=== PATIENT | female | born 2000 | race Caucasian/White ===

== ENCOUNTER 2025-01-10 23:17 | Emergency (ER) | payer OTHER, SELFPAY ==
[2025-01-10 23:21] VITALS: BP 150/104
[2025-01-11 00:25] LABS: HCG, Serum Qualitative Screen Negative
[2025-01-11 00:37] LABS: Blood Urea Nitrogen 9 mg/dl (7-17); Calcium 8.8 mg/dl (8.4-10.2); Carbon Dioxide 22 mmol/L (22-30); Chloride 108 mmol/L (98-107); Glucose 142 mg/dl (70-99); Sodium 137 mmol/L (135-145); eGFR > 60.00
[2025-01-11 02:57] VITALS: BMI 22.0
--- NOTE | 2025-01-11 04:44 | ED.GENMED ---
History of Present Illness
General
Chief Complaint: Generalized Pain
Source: patient
Exam Limitations: none
Time Seen by Provider: 01/11/25 04:26
Nursing documentation reviewed up to this point in time: agreed with
History of Present Illness
History of Present Illness:
This is a 24-year-old female with history of anxiety, ADHD, insomnia. Maintained on Zoloft, Vyvanse and as needed trazodone.
She complains of several day history of generalized aches, cough. Cough is occasionally productive of yellowish phlegm. Aches and fatigue have worsened over the past 2 days and she was noted to have low-grade fever tonight.
No close contacts with similar symptoms. No recent travel. She has not taken antipyretics today but generally takes Tylenol versus ibuprofen on a near daily basis for generalized aches.
She denies sore throat or sinus congestion, no earache, no headache, no neck or back pain. No rash. No nausea or vomiting, no diarrhea or constipation. She has a prior history of UTIs and had mild UTI symptoms perhaps 2 days ago but has since
resolved. No flank pain.
She denies risk of , last menstrual period normal and on time 1 week ago.
Past History
Past History
ED Past Medical History: Psychiatric
ED Past Surgical History: None
Social History
Tobacco: Former smoker (Quit smoking a few months ago, 2024.)
Drug: None
Personal: Single
Living: with family
Employment: Student
Family History
Family History: Other (Noncontributory)
Phy Exam
Physical Exam
Physical Exam:
GENERAL: 24-year-old female appears her stated age, bright and alert, pleasant, appears in no acute distress. Borderline low-grade fever noted initially, has since normalized.
EYE: pupils equal and reactive. anicteric
NECK: Supple, nontender, no meningismus, no significant adenopathy.
ENT: posterior pharynx is clear, oral mucosa is moist. TM clear b/l, nares patent.
CARDIAC: Regular rate and rhythm. no murmur.
LUNGS: Clear breath sounds bilaterally, no acute respiratory distress, no wheezes/rales/rhonchi. No cough appreciated during exam.
ABDOMEN: Soft, nondistended, without focal tenderness, no r/g, no cvat. normoactive BS.
NEUROLOGICAL: Alert and oriented x3, no focal neuro deficits. Gait is keita and steady.
SKIN: Warm and dry, normal color, skin intact. No rash.
MUSCULOSKELETAL: No C/C/E. peripheral pulses are full and equal b/l. No palpable tenderness.
PSYCH: Normal and appropriate interaction.
Course
Orders/Labs/Results
Orders:
Orders
01/10/25 23:24
Complete Blood Count/No Diff Urgent
Test Result ONCE
01/10/25 23:46
Basic Metabolic Panel Urgent
Comment: NO K
HCG, Serum Qualitative Screen Urgent
01/11/25 04:43
Ibuprofen [Motrin] 600 mg PO NOW STA
CR Chest - 2 Views Urgent
Comment:
Reason For Exam: cough, fever
01/11/25 04:44
Urinalysis Reflex To Culture Urgent
01/11/25 05:06
COVID-19 Antigen Urgent
Source: Nasal Swab
Influenza A+B Rapid Molecular Urgent
JENNI Source: Nasal Swab
Specimen Description:
Abnormal Lab Results
01/10/25
23:46
Chloride 108 H mmol/L
(98-107)
Glucose 142 H mg/dl
(70-99)
01/10/25 23:46
Vital Signs
Initial and Last Documented VS:
Initial Vital Signs
Temp Pulse Resp BP Pulse Ox
99.7 F 108 22 150/104 100
01/10/25 23:21 01/10/25 23:21 01/10/25 23:21 01/10/25 23:21 01/10/25 23:21
Last Documented Vital Signs
Temp Pulse Resp BP Pulse Ox
98.8 F 108 22 150/104 100
01/11/25 03:07 01/10/25 23:21 01/10/25 23:21 01/10/25 23:21 01/11/25 04:51
MDM/Problems Addressed
Differential Diagnosis Includes:
Concern for viral syndrome, viral URI, pneumonia, UTI.
Overall well in appearance, nontoxic in appearance.
Will check chest x-ray, rapid COVID, rapid influenza, urinalysis.
Will give ibuprofen for generalized aches.
BMP hemolyzed with normal sodium, normal BUN and creatinine, hCG is negative. Patient refused repeat venipuncture for CBC and at this point, overall well in appearance, no significant past medical history thus, no indication for laboratory studies.
*Radiology
Radiology exam reviewed: preliminary read by ED provider (Chest x-ray is unremarkable. Clear lung jamison.)
*Pulse Oximetry
SaO2: 100
Oxygen Mode of Delivery: Room air
Patient hypoxic: no
*Critical Care Note
Total Time (30-74mins, 75-104mins- exclusive of procedures): Not Applicable
Update Note
Update Note:
06:15
Patient feeling improved after ibuprofen.
COVID and influenza testing are negative.
Chest x-ray is unremarkable. No evidence of infiltrate.
She was unable to provide a urine specimen, dropped it in the toilet. Currently denies UTI symptoms over the past 2 to 3 days.
She does present with mild URI symptoms, mild nasal congestion, intermittent cough but overall well in appearance. I suspect viral URI as cause for fever, generalized aches.
Recommend supportive measures, staying well-hydrated on a daily basis, rest, continue Tylenol versus ibuprofen as needed for fever, aches.
Discussed importance of remaining home from work until fever free for 24 hours. I have offered a work excuse note which she declines.
Discussed importance of prompt follow-up with PCP for recheck.
ED Attending Note
-
Portions of this chart may have been created with voice recognition software.� Occasional wrong word or��sound alike� substitutions may have occurred due to the inherent limitations of voice recognition software.
Discharge Plan
Departure
Patient Disposition: Home (Routine Discharge)
Date of Disposition: 01/11/25
Time of Disposition: 06:20
Patient with high blood pressure during this ER visit?: No
Condition: Good
Discharge Problem:
Upper respiratory infection, viral, Acute febrile illness
Instructions: Fever in adults - Discharge instructions, Upper Respiratory Infection - Adult
Prescriptions:
No Action
norethindrone ac-eth estradiol [Loestrin 08/09 ()] 1 EACH tablet
1 ea PO DAILY
Patient Comments:
CONTROL
Referrals:
NONE,* [Family Provider, Internal Medicine] - Call in 1-3 days for appt
Interventions
Interventions:
*Risk Screen - Suicide Last Done: 01/10/25 23:21
*General Assessment Last Done: 01/11/25 02:56
*Neglect/Abuse Screening Last Done: 01/10/25 23:21
*ED- Fall Risk Assessment Last Done: 01/11/25 02:56
*ED COVID-19 Vaccine History Last Done: 01/11/25 02:56
Discharge Date and Time
Print Language: POLISH
[2025-01-11] MEDS: MOTRIN 600 MG PO (05:04)
[2025-01-11 05:31] LABS: COVID-19 Antigen Negative (Negative)
== END 2025-01-11 06:41 | disposition home or self-care (01) ==
LOC: EMR 23:17
PROVIDERS: EMERGENCY PHYSICIAN Emergency Medicine
DX: J06.9 Acute upper respiratory infection, unspecified (principal); R50.9 Fever, unspecified; Z87.891 Personal history of nicotine dependence; Z11.52 Encounter for screening for COVID-19
CPT/HCPCS: 99284; 71046; 80048; 84703; 87502; 87811